=== PATIENT | female | born 1985 | race Hispanic/Latino ===

== ENCOUNTER 2019-03-31 12:39 | Emergency (ER) | payer SELFPAY ==
[2019-03-31] MEDS ORDERED: SODIUM CHLORIDE 0.9% 1000ML 2,000 ML IV ONE (13:05)
[2019-03-31 13:13] LABS: BASOPHILS % (AUTO) 0.4 % (0.0-5.0); LYMPHOCYTES % (AUTO) 5.8 % (21.0-51.0); MEAN CORPUSCULAR HEMOGLOBIN 25.1 pg (27.0-33.0); MEAN CORPUSCULAR VOLUME 80.7 fL (79-99); MONOCYTES % (AUTO) 2.9 % (3.0-13.0); NEUTROPHILS % (AUTO) 89.9 % (40.0-77.0); PLATELET COUNT (AUTO) 466 K/uL (130-400); RED BLOOD CELL COUNT(AUTO) 4.83 MIL/uL (4.00-5.50); RED CELL DISTRIBUTION WIDTH 14.6 % (11.0-15.5); WHITE BLOOD COUNT (AUTO) 12.1 K/uL (4.8-10.8)
[2019-03-31 13:26] LABS: CREATININE 1.2 mg/dL (0.5-1.5); POTASSIUM 5.4 mmol/L (3.5-5.1)
[2019-03-31] MEDS ORDERED: INSULIN HUMULIN R 100 UNIT/ML 3ML ONE ×3 (13:36→17:21)
[2019-03-31 13:37] LABS: ALBUMIN 2.7 g/dL (3.5-5.0); BILIRUBIN,TOTAL 0.4 mg/dL (0.2-1.0); TOTAL PROTEIN, SERUM 9.4 g/dL (6.0-8.3)
[2019-03-31 14:36] LABS: BILIRUBIN,URINE SMALL (NEGATIVE); GLUCOSE, URINE (UA) 500 mg/dL (NEGATIVE); KETONES,URINE >=80 mg/dL (NEGATIVE); LEUKOCYTE ESTERASE ,URINE TRACE (NEGATIVE); NITRATE,URINE NEGATIVE (NEGATIVE); OCCULT BLOOD,URINE LARGE (NEGATIVE); PROTEIN,URINE 100 mg/dL (NEGATIVE); UROBILINOGEN,URINE 0.2 mg/dL (0.2-1.0)
[2019-03-31 14:37] LABS: APPEARANCE,URINE BLOODY (CLEAR); COLOR,URINE Red (YELLOW)
[2019-03-31 15:06] LABS: BACTERIA,URINE Few /HPF (None Seen); RBC,URINE >100 /HPF (0-1)
== END 2019-03-31 17:28 | disposition home or self-care (01) ==
LOC: EDH 12:39
DX: R73.9 Hyperglycemia, unspecified (principal); B37.0 Candidal stomatitis; Z88.0 Allergy status to penicillin
CPT/HCPCS: 36415; 80053; 81001; 82550; 82948 ×3; 84702; 85025; 96374; 96376 ×2; 99285; J1815 ×3; J7030; 96361

== ENCOUNTER 2019-04-08 00:59 | Inpatient (IN) | payer SELFPAY ==
[2019-04-08] VITALS (22 sets, daily range): BP systolic 109–133; BP diastolic 51–87
[~2019-04-08] VITALS: Ht 154.9 cm; Wt 77.0 kg
[2019-04-08] MEDS ORDERED: SODIUM CHLORIDE 0.9% 1000ML 1,000 ML IV ONE ×2 (01:21→03:19)
[2019-04-08 01:43] LABS: BASOPHILS % (AUTO) 0.1 % (0.0-5.0); EOSINOPHILS % (AUTO) 0.4 % (0.0-8.0); HEMATOCRIT 46.6 % (36-48); LYMPHOCYTES % (AUTO) 6.4 % (21.0-51.0); MEAN CORPUSCULAR HEMOGLOBIN 25.1 pg (27.0-33.0); MEAN CORPUSCULAR HGB CONC 28.8 g/dL (32.0-36.0); MEAN CORPUSCULAR VOLUME 87.4 fL (79-99); MONOCYTES % (AUTO) 3.7 % (3.0-13.0); NEUTROPHILS % (AUTO) 88.8 % (40.0-77.0); PLATELET COUNT (AUTO) 298 K/uL (130-400); RED BLOOD CELL COUNT(AUTO) 5.33 MIL/uL (4.00-5.50); RED CELL DISTRIBUTION WIDTH 15.6 % (11.0-15.5); WHITE BLOOD COUNT (AUTO) 14.3 K/uL (4.8-10.8)
[2019-04-08 01:50] LABS: ABG OXYGEN SATURATION 88.6 % (95.0-99.0); BASE EXCESS,VENOUS BLOOD GAS -1.1 (-2.0-3.0); HCO3,VENOUS BLOOD GAS 23.6 (21.0-28.0); PCO2,VENOUS BLOOD GAS 39 (32-45); PH,VENOUS BLOOD GAS 7.395 (7.350-7.450)
[2019-04-08 02:05] LABS: ALBUMIN 2.6 g/dL (3.5-5.0); BILIRUBIN,TOTAL 0.4 mg/dL (0.2-1.0); CREATININE 1.8 mg/dL (0.5-1.5); MAGNESIUM 2.8 mg/dL (1.80-2.40); POTASSIUM 4.7 mmol/L (3.5-5.1); THYROID STIMULATING HORMONE 0.93 uIU/mL (0.36-3.74); TOTAL PROTEIN, SERUM 9.6 g/dL (6.0-8.3)
[2019-04-08] MEDS ORDERED: SODIUM CHLORIDE 0.9% 100 ML IV ONE (02:31)
[2019-04-08] MEDS ORDERED: INSULIN HUMULIN R 100 UNIT/ML 3ML ONE ×2 (02:32→16:55)
[2019-04-08] MEDS ORDERED: INSULIN REGULAR, HUMAN 3ML 100 UNIT in SODIUM CHLORIDE 0.9% 99 ML IV PRN ×2 (03:30)
[2019-04-08] MEDS ORDERED: DEXTROSE 5%-LACTATED RINGERS 1,000 ML IV SCH (03:30)
[2019-04-08 03:36] LABS: APPEARANCE,URINE SL CLOUDY (CLEAR); BILIRUBIN,URINE NEGATIVE (NEGATIVE); COLOR,URINE YELLOW (YELLOW); GLUCOSE, URINE (UA) >=1000 mg/dL (NEGATIVE); KETONES,URINE 15 mg/dL (NEGATIVE); LEUKOCYTE ESTERASE ,URINE NEGATIVE (NEGATIVE); NITRATE,URINE POSITIVE (NEGATIVE); OCCULT BLOOD,URINE MODERATE (NEGATIVE); PH,URINE 5.5 (5.0-8.0); PROTEIN,URINE 30 mg/dL (NEGATIVE); UROBILINOGEN,URINE 0.2 mg/dL (0.2-1.0)
[2019-04-08 03:42] LABS: BACTERIA,URINE Many /HPF (None Seen)
[2019-04-08 03:43] LABS: AMORPHOUS SEDIMENT,UR Moderate /LPF (None Seen)
[2019-04-08] MEDS ORDERED: DEXTROSE 50%-WATER 50 ML DISP.SYRIN IV PRN (03:45)
[2019-04-08] MEDS ORDERED: GLUCAGON 1MG KIT 1 MG ML IM PRN (03:45)
[2019-04-08 03:48] LABS: AMPHET/METH SCREEN,URINE NEGATIVE (NEGATIVE); BARBITURATE SCREEN, URINE NEGATIVE (NEGATIVE); BENZODIAZEPINES SCREEN,URINE NEGATIVE (NEGATIVE); CANNABINOID SCREEN,URINE NEGATIVE (NEGATIVE); COCAINE SCREEN,URINE NEGATIVE (NEGATIVE); OPIATE SCREEN,URINE NEGATIVE (NEGATIVE); PHENCYCLIDINE SCREEN,URINE NEGATIVE (NEGATIVE)
[2019-04-08] MEDS ORDERED: CEFTRIAXONE SODIUM 1 GM IVP SCH (04:00)
[2019-04-08] MEDS ORDERED: DEXTROSE 5%-LACTATED RINGERS 1,000 ML IV ONE (04:05)
[2019-04-08] MEDS ORDERED: NYSTATIN 100000 UNIT/ML 5ML UDCUP PO SCH (04:30)
[2019-04-08] MEDS ORDERED: CEFTRIAXONE SODIUM 1 GM ONE (04:45)
[2019-04-08] MEDS ORDERED: SODIUM CHLORIDE 0.9% 50 ML IV ONE (04:46)
[2019-04-08 06:05] LABS: BASOPHILS % (AUTO) 0.2 % (0.0-5.0); EOSINOPHILS % (AUTO) 0.8 % (0.0-8.0); HEMATOCRIT 40.8 % (36-48); LYMPHOCYTES % (AUTO) 10.1 % (21.0-51.0); MEAN CORPUSCULAR HEMOGLOBIN 24.8 pg (27.0-33.0); MEAN CORPUSCULAR HGB CONC 28.7 g/dL (32.0-36.0); MEAN CORPUSCULAR VOLUME 86.4 fL (79-99); MONOCYTES % (AUTO) 3.2 % (3.0-13.0); NEUTROPHILS % (AUTO) 85.3 % (40.0-77.0); PLATELET COUNT (AUTO) 228 K/uL (130-400); RED BLOOD CELL COUNT(AUTO) 4.72 MIL/uL (4.00-5.50); RED CELL DISTRIBUTION WIDTH 15.2 % (11.0-15.5); WHITE BLOOD COUNT (AUTO) 11.7 K/uL (4.8-10.8)
[2019-04-08 06:12] LABS: HEMOGLOBIN A1C 12.5 % (4.0-6.0)
[2019-04-08 06:19] LABS: ALBUMIN 2.4 g/dL (3.5-5.0); BILIRUBIN,TOTAL 0.2 mg/dL (0.2-1.0); CREATININE 1.5 mg/dL (0.5-1.5); POTASSIUM 3.5 mmol/L (3.5-5.1); TOTAL PROTEIN, SERUM 8.4 g/dL (6.0-8.3)
[2019-04-08] MEDS ORDERED: DEXTROSE 5 %-0.45 % NACL 1,000 ML IV PRN (06:51)
[2019-04-08 07:17] LABS: ABG BASE EXCESS 3.7 mmol/L (-2.0-3.0); ABG HCO3 28.2 mmol/L (21.0-28.0); ABG OXYGEN SATURATION 96.5 % (95.0-99.0); ABG PCO2 42 mmHg (32-45)
[2019-04-08] MEDS: LACTATED RINGERS 1000ML 1,000 ML IV SCH ×2 (08:52→08:53)
--- NOTE | 2019-04-08 08:59 | NUR ---
PT TACHYCARDIC IN 140'S. I FOUND KAEL RODRIGUEZ HOGSHEAD SALVAGE AND SHE WAS BROUGHT TO ROOM TO SEE PT. I HAVE STARTED A 2LITER LR BOLUS. [id number] TO PT AND GIVEN A PITCHER OF WATER. [facility] REPORTED ALSO SERUM GLUCOSE ABOVE 400
[2019-04-08] MEDS: POTASSIUM CHLORIDE 10MEQ/100ML 100 ML IV PRN ×2 (09:27→11:20)
[2019-04-08] MEDS: RANITIDINE HCL 15 MG/1 ML PO SCH (09:30)
[2019-04-08] MEDS: LIDOCAINE HCL-MPF 1% 2ML VIAL IV PRN (09:30)
[2019-04-08] MEDS: DEXTROSE 5%-LACTATED RINGERS 1,000 ML IV SCH ×2 (10:00→15:33)
[2019-04-08] MEDS: DOXYCYCLINE 100MG+NS 250ML 250 ML IV SCH ×2 (11:20→21:23)
[2019-04-08] MEDS ORDERED: LACTATED RINGERS 1000ML 1,000 ML IV SCH (12:45)
[2019-04-08 13:17] LABS: ABG BASE EXCESS 4.4 mmol/L (-2.0-3.0); ABG HCO3 28.4 mmol/L (21.0-28.0); ABG OXYGEN SATURATION 97.3 % (95.0-99.0); ABG PCO2 40 mmHg (32-45)
[2019-04-08] MEDS: NYSTATIN 100000 UNIT/ML 5ML UDCUP PO SCH ×3 (13:29→20:36)
[2019-04-08 13:50] LABS: CREATININE 1.2 mg/dL (0.5-1.5); MAGNESIUM 1.9 mg/dL (1.80-2.40); POTASSIUM 3.7 mmol/L (3.5-5.1)
--- NOTE | 2019-04-08 14:07 | NUR ---
PT OVERALL FEELS "BETTER".. DR GRAJEDA ROUNDED AND SPOKE TO PATIENT. WILL CONTINUE ICU STATUS. INSULIN DRIP IS OFF. POTASSIUM COVERED. WILL START AC/HS INSULIN SQ SCALE. NO ACUTE DISTRESS NOTED
[2019-04-08] MEDS: MAGNESIUM 2GM PREMIX 50ML 50 ML IV PRN (15:02)
[2019-04-08] MEDS: FLUCONAZOLE 100 MG TAB PO SCH (15:28)
[2019-04-08] MEDS: DEXTROSE 5%-WATER 1,000 ML IV SCH ×2 (15:29→19:58)
[2019-04-08] MEDS: INSULIN HUMULIN R 100 UNIT/ML 3ML SQ SCH ×2 (17:01→21:26)
[2019-04-09] VITALS (16 sets, daily range): BP systolic 107–141; BP diastolic 66–91
[2019-04-09] MEDS: DEXTROSE 5%-WATER 1,000 ML IV SCH ×3 (01:00→15:34)
[2019-04-09] MEDS: DEXTROSE 5%-LACTATED RINGERS 1,000 ML IV SCH ×3 (02:15→09:40)
[2019-04-09 03:39] LABS: HEMATOCRIT 32.8 % (36-48); MEAN CORPUSCULAR HEMOGLOBIN 24.7 pg (27.0-33.0); MEAN CORPUSCULAR VOLUME 87.9 fL (79-99); MONOCYTES % (AUTO) 3.7 % (3.0-13.0); NEUTROPHILS % (AUTO) 80.6 % (40.0-77.0); PLATELET COUNT (AUTO) 160 K/uL (130-400); RED BLOOD CELL COUNT(AUTO) 3.73 MIL/uL (4.00-5.50); RED CELL DISTRIBUTION WIDTH 15.5 % (11.0-15.5)
[2019-04-09 03:54] LABS: CREATININE 1.4 mg/dL (0.5-1.5)
[2019-04-09 03:57] LABS: POTASSIUM 2.9 mmol/L (3.5-5.1)
[2019-04-09] MEDS: POTASSIUM CHLORIDE 20MEQ/100ML 100 ML IV PRN ×2 (04:06→06:12)
[2019-04-09] MEDS: LIDOCAINE HCL-MPF 1% 2ML VIAL IV PRN ×2 (04:08→06:12)
[2019-04-09] MEDS: INSULIN HUMULIN R 100 UNIT/ML 3ML SQ SCH ×4 (06:32→21:07)
[2019-04-09] MEDS ORDERED: COMPOUND IV MISC 1 EACH IVSOLN MISC PRN (09:00)
[2019-04-09] MEDS: DOXYCYCLINE 100MG+NS 250ML 250 ML IV SCH ×2 (09:06→21:00)
[2019-04-09] MEDS: FLUCONAZOLE 100 MG TAB PO SCH (09:06)
[2019-04-09] MEDS: RANITIDINE HCL 15 MG/1 ML PO SCH (09:07)
[2019-04-09] MEDS: NYSTATIN 100000 UNIT/ML 5ML UDCUP PO SCH ×4 (09:07→20:52)
[2019-04-09] MEDS: INSULIN GLARGINE 100 UNITS/ML 10 ML VIAL SQ SCH ×2 (09:20→21:01)
[2019-04-09] MEDS ORDERED: LACTATED RINGERS 1000ML 1,000 ML IV SCH (09:45)
[2019-04-09] MEDS: IRON SUCROSE COMPLEX 100 MG in SODIUM CHLORIDE 0.9% 50 ML IV SCH (09:50)
--- NOTE | 2019-04-09 10:33 | NUR ---
FRANCSE CATH REMOVED BY Rodriguez RAGSDALE RN
[2019-04-09] MEDS: POTASSIUM CHLORIDE 10% ELIXIR 20 MEQ/15 ML UDCUP PO PRN ×4 (10:52→23:09)
[2019-04-09] MEDS: POTASSIUM CHLORIDE 20 MEQ ERTAB PO PRN (15:34)
--- NOTE | 2019-04-09 16:28 | NUR ---
TRANSFERRED TO ROOM 207. HAND OFF REPORT GIVEN TO JESUS HARRIS
--- NOTE | 2019-04-09 17:44 | NUR ---
INITIAL: Met with pt and spouse this afternoon to discuss dcp. Pt mentions that she lives w her spouse and 2children. She mentions that prior to admission she was independent w ambulation and ADLs. She does not have any DME and does not receive services. Per pt she seeks medical care @ [facility] and obtains meds @ their pharmacy. Pt mentions that she just recently bought a glucose meter and if needed is willing to learn insulin administration. Pt mentions that she feels safe and [place] Low income packet provided. CM to continue to follow and wait for Md recommendations. Addendum: 04/09/19 at 1746 by MARCOS ELIZABETH Amended: Links added.
[2019-04-09] MEDS ORDERED: GLYB5TAB8 PO (17:49)
[2019-04-09] MEDS ORDERED: METF-444 PO (17:49)
[2019-04-09] MEDS ORDERED: INSULIN GLARGINE 100 UNITS/ML 10 ML VIAL SQ SCH (21:00)
[2019-04-10 03:30] VITALS: BP 115/72
[2019-04-10 03:34] LABS: BASOPHILS % (AUTO) 0.1 % (0.0-5.0); EOSINOPHILS % (AUTO) 1.9 % (0.0-8.0); LYMPHOCYTES % (AUTO) 18.7 % (21.0-51.0); MEAN CORPUSCULAR HEMOGLOBIN 25.3 pg (27.0-33.0); MEAN CORPUSCULAR HGB CONC 29.1 g/dL (32.0-36.0); MONOCYTES % (AUTO) 3.8 % (3.0-13.0); NEUTROPHILS % (AUTO) 74.9 % (40.0-77.0); PLATELET COUNT (AUTO) 126 K/uL (130-400); RED BLOOD CELL COUNT(AUTO) 3.68 MIL/uL (4.00-5.50); RED CELL DISTRIBUTION WIDTH 14.7 % (11.0-15.5); WHITE BLOOD COUNT (AUTO) 7.7 K/uL (4.8-10.8)
[2019-04-10 04:13] LABS: CREATININE 0.9 mg/dL (0.5-1.5); MAGNESIUM 1.6 mg/dL (1.80-2.40); PHOSPHORUS 2.5 mg/dL (2.5-4.9); POTASSIUM 3.1 mmol/L (3.5-5.1); THYROID STIMULATING HORMONE 1.32 uIU/mL (0.36-3.74)
[2019-04-10 04:27] LABS: % IRON SATURATION 37.3 % (22-44)
[2019-04-10] MEDS: DEXTROSE 5%-WATER 1,000 ML IV SCH (05:44)
[2019-04-10] MEDS: INSULIN GLARGINE 100 UNITS/ML 10 ML VIAL SQ SCH (06:43)
[2019-04-10] MEDS: POTASSIUM CHLORIDE 20 MEQ ERTAB PO PRN ×2 (06:43→15:36)
[2019-04-10] MEDS: INSULIN HUMULIN R 100 UNIT/ML 3ML SQ SCH ×4 (06:43→20:25)
--- NOTE | 2019-04-10 07:20 | NUR ---
TRANSFER PATIENT TRANSFERRED TO ROOM 218. AMBULATORY. NO SIGNS OR SYMPTOMS OF DISTRESS. SPOUSE AT BEDSIDE
[2019-04-10] MEDS: IRON SUCROSE COMPLEX 100 MG in SODIUM CHLORIDE 0.9% 50 ML IV SCH (07:51)
[2019-04-10] MEDS: RANITIDINE HCL 15 MG/1 ML PO SCH (07:51)
[2019-04-10] MEDS: NYSTATIN 100000 UNIT/ML 5ML UDCUP PO SCH ×4 (07:51→20:20)
[2019-04-10] MEDS: FLUCONAZOLE 100 MG TAB PO SCH (07:52)
[2019-04-10] MEDS: MAGNESIUM 2GM PREMIX 50ML 50 ML IV PRN (07:52)
[2019-04-10 08:00] VITALS: BP 121/77
[2019-04-10] MEDS: DOXYCYCLINE 100MG+NS 250ML 250 ML IV SCH (10:44)
[2019-04-10] MEDS: ONDANSETRON 4 MG TABLET PO PRN (14:00)
[2019-04-10] MEDS: LEVOFLOXACIN 500 MG TABLET PO SCH (14:02)
--- NOTE | 2019-04-10 15:00 | NUR ---
TRANSFER PATIENT RECEIVED FROM 2ND FLOOR IN STABLE CONDITION. SHE IS AWAKE, ALERT AND ORIENTED X3 WITH NO COMPLAINTS AT PRESENT. SHE WAS ORIENTED TO ROOM AND USE OF CALL LIGHT. BED IS IN LOWEST POSITION AND LOCKED. PATIENT HAS NO IV IN PLACE AND KIMBERLY LEE SAYS THAT HE PUT A NURSE COMMUNICATION FROM DR. ZHANG STATING THAT IT WAS OKAY FOR THE PATIENT TO NOT HAVE AN IV AT THIS TIME.
[2019-04-10 15:58] VITALS: BP 124/88
[2019-04-10 16:47] LABS: MAGNESIUM 2.1 mg/dL (1.80-2.40); POTASSIUM 3.6 mmol/L (3.5-5.1)
[2019-04-10 19:40] VITALS: BP 118/75
[2019-04-10 23:37] VITALS: BP 111/60
[2019-04-11 03:26] VITALS: BP 87/53
[2019-04-11 05:14] LABS: BASOPHILS % (AUTO) 0.2 % (0.0-5.0); EOSINOPHILS % (AUTO) 1.4 % (0.0-8.0); HEMATOCRIT 29.7 % (36-48); LYMPHOCYTES % (AUTO) 16.1 % (21.0-51.0); MEAN CORPUSCULAR HEMOGLOBIN 25.1 pg (27.0-33.0); MEAN CORPUSCULAR HGB CONC 30.3 g/dL (32.0-36.0); MEAN CORPUSCULAR VOLUME 82.7 fL (79-99); MONOCYTES % (AUTO) 3.8 % (3.0-13.0); NEUTROPHILS % (AUTO) 77.9 % (40.0-77.0); PLATELET COUNT (AUTO) 117 K/uL (130-400); RED BLOOD CELL COUNT(AUTO) 3.59 MIL/uL (4.00-5.50); RED CELL DISTRIBUTION WIDTH 13.9 % (11.0-15.5); WHITE BLOOD COUNT (AUTO) 6.4 K/uL (4.8-10.8)
[2019-04-11 05:26] LABS: ALBUMIN 1.7 g/dL (3.5-5.0); MAGNESIUM 2.1 mg/dL (1.80-2.40); PHOSPHORUS 3.5 mg/dL (2.5-4.9); POTASSIUM 3.7 mmol/L (3.5-5.1)
[2019-04-11 05:37] LABS: B-TYPE NATRIURETIC PEPTIDE 30 pg/mL (0-100)
[2019-04-11] MEDS: INSULIN HUMULIN R 100 UNIT/ML 3ML SQ SCH ×4 (06:56→20:46)
[2019-04-11] MEDS: RANITIDINE HCL 15 MG/1 ML PO SCH (07:52)
[2019-04-11] MEDS: LEVOFLOXACIN 500 MG TABLET PO SCH (07:52)
[2019-04-11] MEDS: ASCORBIC ACID 500 MG TAB PO SCH (07:52)
[2019-04-11] MEDS: FLUCONAZOLE 100 MG TAB PO SCH (07:52)
[2019-04-11] MEDS: NYSTATIN 100000 UNIT/ML 5ML UDCUP PO SCH ×4 (07:53→19:54)
[2019-04-11] MEDS: INSULIN HUMULIN 70/30 100 UNIT/ML 3ML SQ SCH ×2 (07:59→16:51)
[2019-04-11 08:00] VITALS: BP 105/71
[2019-04-11] MEDS: IRON SUCROSE COMPLEX 100 MG in SODIUM CHLORIDE 0.9% 50 ML IV SCH ×2 (08:36→08:37)
[2019-04-11 11:46] VITALS: BP 106/85
--- NOTE | 2019-04-11 13:48 | NUR ---
Nutrition Education MILANA assessed Pt for Diabetes Nutrition Education. Pt was able to demonstrate appropriate nutrition recommendations. Pt states she had begun to fall into old habits of drinking sodas and not monitoring portion sizes. MILANA reviewed nutritional recommendations with Pt. Pt denies need for reference materials and handouts. Pt with appropriate knowledge of nutrition recommendations. Addendum: 04/11/19 at [address] RD Amended: Links added.
--- NOTE | 2019-04-11 14:18 | NUR ---
RD Notification Pt admitted for DKA, Hypernatremia, Hypercalcemia, Hx of GA, DM. Upon visit Pt reports improved appetite/PO intake d/t resolution of thrush. Pt demonstrated previous knowledge of Diabetes nutrition education. Pt malnutrition risk secondary to unplanned,17# wt loss within one month. Recommend to add 30mL ProMod BID. Pt LBM 04/10/19. Pt monitored labs: RBC 3.59, Hgb 9.0, Hct 29.7, BG 120, Alb 1.7. RD to continue to monitor. please notify RD as additional nutrition concerns arise. Thank you. Addendum: 04/11/19 at [address] RD Amended: Links added.
[2019-04-11 16:02] VITALS: BP 114/73
[2019-04-11] MEDS: METFORMIN HCL 500 MG TABLET PO SCH (16:52)
[2019-04-11 21:00] VITALS: BP 144/68
[2019-04-11] MEDS: POTASSIUM CHLORIDE 20 MEQ ERTAB PO PRN (22:30)
[2019-04-12 00:20] VITALS: BP 101/68
[2019-04-12 03:46] VITALS: BP 104/71
[2019-04-12] MEDS: INSULIN HUMULIN R 100 UNIT/ML 3ML SQ SCH ×3 (05:17→16:10)
[2019-04-12] MEDS: METFORMIN HCL 500 MG TABLET PO SCH ×2 (05:23→17:11)
[2019-04-12] MEDS: INSULIN HUMULIN 70/30 100 UNIT/ML 3ML SQ SCH ×2 (05:24→17:16)
[2019-04-12 08:37] VITALS: BP 107/66
[2019-04-12] MEDS: LEVOFLOXACIN 500 MG TABLET PO SCH (09:07)
[2019-04-12] MEDS: FLUCONAZOLE 100 MG TAB PO SCH (09:07)
[2019-04-12] MEDS: ASCORBIC ACID 500 MG TAB PO SCH (09:07)
[2019-04-12] MEDS: NYSTATIN 100000 UNIT/ML 5ML UDCUP PO SCH ×3 (09:07→17:12)
[2019-04-12] MEDS: RANITIDINE HCL 15 MG/1 ML PO SCH (09:07)
[2019-04-12 11:06] VITALS: BP 100/67
[2019-04-12] MEDS: ONDANSETRON 4 MG TABLET PO PRN (13:02)
[2019-04-12] MEDS ORDERED: LEVO500T2 PO (14:43)
[2019-04-12] MEDS ORDERED: METF-444 PO (14:43)
[2019-04-12] MEDS ORDERED: HUM10VIA SQ ×2 (14:43)
[2019-04-12] MEDS ORDERED: NYST5ORA7 PO (14:43)
[2019-04-12 15:51] VITALS: BP 120/72
--- NOTE | 2019-04-12 17:52 | NUR ---
PATIENT DISCHARGE NO IV, PATIENT GIVEN DISCHARGE INSTRUCTIONS REGARDING INSULIN DOSAGE AND FREQUENCY, GIVEN RX TO BE TAKEN TO PHARMACY OF HER CHOICE, FOLLOW UP INFORMATION FOR HER TO CALL AND SCHEDULE HER APPOINTMENT WITHIN 2 WEEKS. PATIENT WAITING FOR HER MOTHER TO ARRIVE FOR HER RIDE HOME.
== END 2019-04-12 18:56 | disposition home or self-care (01) | DRG 871 ==
LOC: EDH 00:59 → EDHIP 01:00 → UNDOADMIN 03:20 → EDHIP 03:20 → 2CH 07:53 → 2BH 04-09 09:07 → 2CH 04-10 07:35 → 3CH 04-10 15:10
PROVIDERS: ADMIT Hospitalist; ATTEND Hospitalist
DX: A41.9 Sepsis, unspecified organism (principal); E11.10 Type 2 diabetes mellitus with ketoacidosis without coma; E43 Unspecified severe protein-calorie malnutrition; N39.0 Urinary tract infection, site not specified; E87.0 Hyperosmolality and hypernatremia; B37.0 Candidal stomatitis; N17.9 Acute kidney failure, unspecified; E11.22 Type 2 diabetes mellitus with diabetic chronic kidney disease; E11.65 Type 2 diabetes mellitus with hyperglycemia; E83.52 Hypercalcemia; E66.9 Obesity, unspecified; D64.9 Anemia, unspecified; E86.0 Dehydration; E86.1 Hypovolemia; E87.6 Hypokalemia; E87.8 Other disorders of electrolyte and fluid balance, not elsewhere classified; N18.9 Chronic kidney disease, unspecified; Z68.32 Body mass index [BMI] 32.0-32.9, adult; Z88.0 Allergy status to penicillin; Z88.8 Allergy status to other drugs, medicaments and biological substances; Z79.4 Long term (current) use of insulin; Z86.32 Personal history of gestational diabetes
CPT/HCPCS: 36415; 36600; 80048; 80053; 80061; 80305; 81001; 82010; 82040; 82550; 82728; 82803; 82948; 83036; 83540; 83550; 83605; 83735; 83880; 83935; 84100; 84132; 84145; 84439; 84443; 84484; 84702; 85025; 87040; 87077; 87088; 87186; 87804; 93005; 99291; G0378; J0696; J1756; J1815; J3475; J3480; J3490; J7030; J7070; J7120; Q0162